=== PATIENT | female | born 1965 | race Caucasian/White ===

== ENCOUNTER 2020-10-05 08:16 | Emergency (ER) | payer OTHER, SELFPAY ==
[2020-10-05] VITALS (14 sets, daily range): BP systolic 155–193; BP diastolic 102–115; PULSE 77–98; RESP 13–20; TEMP 36.7; O2SAT 95–100
--- NOTE | ~2020-10-05 | XR_ITS ---
EXAMINATION: XR chest 2V 10/05/2020 08:41 INDICATION: Left anterior chest pain PROCEDURE: PA and lateral views of the chest COMPARISON: 05/03/2019 FINDINGS: The lungs are clear. The cardiomediastinal silhouette is within normal limits. There are no pleural effusions. There is no pneumothorax suspected. IMPRESSION: 1: NO ACUTE CARDIOPULMONARY DISEASE. Reviewed, dictated and finalized at location B.
--- NOTE | 2020-10-05 08:18 | ECG_ITS ---
Measurements Intervals [place] Rate: 96 P: -41 OK: 132 QRS: 28 QRSD: 81 T: 37 QT: 352 QTc: 447 Interpretive Statements SINUS OR ECTOPIC ATRIAL RHYTHM BORDERLINE ECG Electronically Signed On 10-05-2020 11:37:41 CDT by Morgan Youngblood D.O.
[2020-10-05 08:52] LABS: Basophils Percent Auto 0.4 % (0.2-1.2); Eosinophils Absolute Auto 0.1 K/mm3 (0-0.3); Eosinophils Percent Auto 1.1 % (0-4.4); Hemoglobin 17.7 g/dL (12.0-15.0); Immature Granulocyte Absolute 0.02 K/mm3 (0.00-0.031); Immature Granulocyte Percent A 0.2 % (0-0.5); Lymphocytes Absolute Auto 2.83 K/mm3 (0.9-3.2); Lymphocytes Percent Auto 31.7 % (18.3-44.2); Mean Corpuscular HGB Conc 33.4 g/dl (32-36); Mean Corpuscular Hemoglobin 32.1 pg (26-34); Mean Corpuscular Volume 96.2 fl (80-100); Mean Platelet Volume 11.4 fl (7.4-10.4); Monocytes Absolute Auto 0.7 K/mm3 (0.1-0.6); Neutrophils Absolute Auto 5.2 K/mm3 (1.3-6.7); Neutrophils Percent Auto 58.6 % (45.5-73.1); Platelet Count Result 216 k/mm3 (150-375); Red Blood Count 5.51 M/mm3 (4.2-5.4); Red Cell Distribution Width 13.2 % (11.5-14.5); White Blood Count 8.9 K/mm3 (4.5-10.0)
--- NOTE | 2020-10-05 08:52 | ED.CHESTPAIN ---
HPI - Chest Pain General Chief Complaint: Chest Pain Stated Complaint: Dull ache in my chest Time Seen by Provider: 10/05/20 08:27 Source: patient and RN notes reviewed Mode of arrival: ambulatory Limitations: no limitations History of Present Illness HPI narrative: Patient is 55 years old white female presents with dull aching pain across the chest for the last 24 hours, constant, worse with stress, nothing make it better. Patient sons who is 28 years old, struggling with drug addiction, relapsed on meth, patient called the police yesterday to get him some help. Patient in tears, last lorazepam intake was last night to help her to sleep. Patient denies any fever, chills, nausea, vomiting, shortness of breath, back pain or radiation of pain. Related Data Home Medications Medication Instructions Recorded Confirmed irbesartan mg 10/05/20 lorazepam 10/05/20 Allergies Allergy/AdvReac Type Severity Reaction Status Date / Time morphine Allergy Unknown Itching Verified 10/05/20 08:28 Review of Systems Review of Systems: Narrative: CONSTITUTIONAL: Denies fever, chills, or sweats. EYES: Denies visual changes, redness, or discharge. ENT: Denies rhinorrhea, congestion, sore throat, or otalgia. CARDIOVASCULAR: Denies chest pain, palpitations, or edema. RESPIRATORY: Denies cough or dyspnea. GASTROINTESTINAL: Denies abdominal pain, nausea, vomiting, or diarrhea. GENITOURINARY: Denies dysuria or hematuria. SKIN: Denies rash or itching. MUSCULOSKELETAL: Denies back pain, joint pain, or myalgia. NEUROLOGIC: Denies headache, numbness, or weakness. PSYCHIATRIC: Denies anxiety or depression. Exam Narrative: Exam Narrative: General appearance: Well-developed, well-nourished, patient in in tears, very stressed, no significant other at the bedside Skin: Normal color Head: Normocephalic, nontraumatic Eyes: Clear conjunctiva ENT: Oropharynx normal, ears normal, nose normal Neck: Supple, nontender Chest and respiratory: Airway patent, no respiratory distress, no accessory muscle use Heart: Regular rate/rhythm Abdomen: Soft, nontender, no organomegaly, quiet bowel sounds Vascular: Normal peripheral pulses, normal capillary refill. Musculoskeletal: Normal range of motion, nontender back Neurologic: Alert and oriented ?3, LVN is normal as tested, no gross motor deficit Course Course Emergency Course: Improving Vital Signs Vital signs: Vital Signs Pulse Rate 96 10/05/20 08:20 Respiratory Rate 14 10/05/20 08:20 Blood Pressure 193/115 H 10/05/20 08:20 Pulse Oximetry 100 10/05/20 08:20 Temperature 36.7 C 10/05/20 09:01 Pulse Rate 87 10/05/20 09:08 Respiratory Rate 16 10/05/20 09:08 Blood Pressure 177/106 H 10/05/20 08:46 Pulse Oximetry 95 10/05/20 09:08 MDM - Chest Pain MDM Narrative Medical decision making narrative: Patient presents with constant chest tightness over the last 24 hours, normal EKG, patient anterior because of stress. Anxiety/stress inducing chest pain is my concern. Labs, chest x-ray, IV Ativan ordered. Further plan to follow Differential Diagnosis Differential diagnosis: Likely atypical chest pain, chest pain and other (Anxiety related symptoms) Lab Data Result diagrams: 10/05/20 08:45 10/05/20 08:45 Labs: Lab Results 10/05/20 10/05/20 10/05/20 Range/Units 08:45 08:45 08:45 WBC 8.9 (4.5-10.0) K/mm3 RBC 5.51 H (4.2-5.4) M/mm3 Hgb 17.7 H (12.0-15.0) g/dL Hct 53.0 H (37.0-47.0) % MCV 96.2 (80-100) fl MCH 32.1 (26-34) pg MCHC 33.4 (32-36) g/dl RDW 13.2 (11.5-14.5) % Plt Count 216 (150-375) k/mm3 MPV 11.4 H (7.4-10.4) fl
[2020-10-05] MEDS: LORazepam INJ (*CRX) 2 MG/ML VIAL 1 MG IV PUSH (08:57)
[2020-10-05 09:01] LABS: Platelet Estimate Adequate (Adequate); Stomatocytes 1+ (NORMAL)
[2020-10-05 09:02] LABS: INR 0.8; Partial Thromboplastin Time 31.2 SECONDS (22.3-36.8); Prothrombin Time 11.9 Seconds (11.1-14.7)
[2020-10-05 09:07] LABS: Anion Gap 6 mmol/L (8-16); Blood Urea Nitrogen 10 mg/dL (7-17); Calcium 9.2 mg/dL (8.4-10.2); Carbon Dioxide 28 mmol/L (22-30); Chloride 107 mmol/L (98-107); Estimated CRCL calculation 72 ml/min; Estimated Glomerular Filt Rate > 60; Glucose 110 mg/dL (65-105); Potassium 4.6 mmol/L (3.4-5.0); Sodium 141 mmol/L (137-145)
[2020-10-05 09:19] LABS: Troponin I < 0.012 ng/mL (0.000-0.034)
== END 2020-10-05 10:12 | disposition home or self-care (01) ==
PROVIDERS: Emergency Provider Emergency Medicine; PCP Emergency Medicine
DX: R07.9 Chest pain, unspecified (principal)
CPT/HCPCS: 36415; 71046; 80048; 84484; 85025; 85610; 85730; 93005; 96374; 99284; J2060

== ENCOUNTER 2021-03-06 11:01 | Emergency (ER) | payer BC, SELFPAY ==
--- NOTE | ~2021-03-06 | CT_ITS ---
EXAMINATION: CT lumbar spine wo [facility] EXAM DATE: 03/06/2021 14:12 INDICATION: Lower extremity paresthesias, low back pain. TECHNIQUE: Spiral CT of the lumbar spine was performed without contrast. Axial, coronal and sagittal images lumbar spine were reviewed. The dose-length product (DLP) for this examination was 183.47 mG y-cm. The exposure was tailored according to patient size (auto mA exposure control), and iterative reconstruction (ASIR) was used as additional dose reduction technique. There is no prior study for comparison. FINDINGS: There are no acute fractures identified. The vertebral bodies are aligned in the AP dimensi on. No spondylolysis. Mild lumbar disc disease. There are no bony erosions identified. There are no o steoblastic or osteolytic lesions identified. There is left renal mildly hyperdense region measuring about 1 cm, most likely a hemorrhagic cyst but indeterminate. This is in the anterior cortex. Level by level evaluation: T12-L1: Disc does not extend beyond the endplate margin. Facet arthropathy: None. Neural foraminal stenosis: No stenosis. Central canal stenosis: No stenosis. L1-L2: Disc does not extend beyond the endplate margin. Facet arthropathy: None. Neural foraminal stenosis: No stenosis. Central canal stenosis: No stenosis. L2-L3: Disc does not extend beyond the endplate margin. Facet arthropathy: Mild. Neural foraminal stenosis: No stenosis. Central canal stenosis: No stenosis. L3-L4: There is a mild diffuse disc bulge. Facet arthropathy: Mild. Neural foraminal stenosis: No stenosis. Central canal stenosis: No stenosis. L4-L5: There is a mild to moderate diffuse disc bulge. Facet arthropathy: Severe right, moderate left. Neural foraminal stenosis: Mild bilateral. Central canal stenosis: Mild to moderate. L5-S1: There is a mild diffuse disc bulge. Facet arthropathy: Mild to moderate bilateral. Neural foraminal stenosis: Mild left. Central canal stenosis: No stenosis. IMPRESSION: 1. L4-5 advanced facet arthropathy. 2. Mild to moderate disc disease. 3. Left renal lesion statistically most likely hemorrhagic cyst but indeterminate on this study. Fol low-up nonemergent kidney ultrasound should be obtained. Reviewed, dictated and finalized at location B. IMPRESSION: 1. L4-5 advanced facet arthropathy. 2. Mild to moderate disc disease. 3. Left renal lesion statistically most likely hemorrhagic cyst but indetermin ate on this study. Follow-up nonemergent kidney ultrasound should be obtained.
--- NOTE | ~2021-03-06 | US_ITS ---
EXAMINATION: US arterial ankle brachial ind EXAM DATE: 03/06/2021 14:27 INDICATION: lower extremity paresthesias, pallor, discoloration. TECHNIQUE: Segmental pressures and plethysmographic and Doppler waveforms of the brachial and lower e xtremity arteries were obtained. There is no prior study for comparison. FINDINGS: Right and left brachial artery pressures of 143 mm Hg and 135 mm Hg, respectively, are concordant (no rmal difference <= 30 mmHg). RIGHT LEG: The ankle-brachial index (PALMIRA) is 1.15 (normal >= 0.9-1). The great toe-brachial index (TBI) is 0.74 (normal >= 0.65). The lower extremity ratios, segmental pressure gradients as follows; Dorsalis pedis: 1.15 (165 mmHg). Posterior tibial: 1.15 (164 mmHg). (Normal gradients <= 20-30 mmHg between adjacent levels on the same leg or the same levels on the two legs). Arterial waveforms are biphasic. LEFT LEG: The ankle-brachial index (PALMIRA) is 1.26 (normal >= 0.9-1). The great toe-brachial index (TBI) is 0.44 (normal >= 0.65). The lower extremity ratios, segmental pressure gradients as follows; Dorsalis pedis: 1.09 (156 mmHg). Posterior tibial: 1.26 (180 mmHg). (Normal gradients <= 20-30 mmHg between adjacent levels on the same leg or the same levels on the two legs). Arterial waveforms are biphasic. IMPRESSION: 1. Right ankle-brachial index 1.15, normal. 2. Left ankle-brachial index 1.26, normal. 3. Segmental pressures as above. Reviewed, dictated and finalized at location B.
[2021-03-06 11:06] VITALS: BP 140/89; PULSE 85; RESP 15; TEMP 36.6; O2SAT 98
--- NOTE | 2021-03-06 15:26 | ED.GENADULT ---
HPI - General Adult General Chief complaint: Unspecified Stated complaint: BILATERAL FEET PAIN AND DISCOLORATION Time Seen by Provider: 03/06/21 13:46 Source: patient Mode of arrival: ambulatory Limitations: no limitations History of Present Illness HPI narrative: This is a 55-year-old female that presents to the emergency department for ongoing symptoms over the last month. Reports she intermittently feels tingling in her legs. Also reports sometimes her feet appear pale and feel cold. Does report some history of low back problems. Denies any recent injury or trauma. Denies fever, erythema, edema, or numbness. Related Data Home Medications Medication Instructions Recorded Confirmed irbesartan mg 10/05/20 lorazepam 10/05/20 buspirone mg 03/06/21 03/06/21 Allergies Allergy/AdvReac Type Severity Reaction Status Date / Time morphine Allergy Unknown Itching Verified 03/06/21 12:33 Review of Systems Review of Systems: CONSTITUTIONAL: Denies fever SKIN: Denies rash MUSCULOSKELETAL: Reports back pain, joint pain, and myalgia. NEUROLOGIC: Denies numbness, or weakness. All systems reviewed & are unremarkable except as noted in HPI and below PMFSH Past Medical History Medical History (Updated 03/06/21 @ 15:31 by Harriett Minor PA-C) History of hypertension Surgical History Surgical History (Updated 03/06/21 @ 15:31 by Harriett Minor PA-C) History of hysterectomy Exam Narrative: GENERAL: Well-appearing, well-nourished, and in no acute distress. HEAD: Normocephalic, atraumatic. EYES: EOMI. CHEST: Clear to auscultation. No respiratory distress. No wheezes rales or rhonchi HEART: Regular rate and rhythm. No murmur heard. Normal peripheral pulses. EXTREMITIES: Normal range of motion. No edema, erythema. Normal DP pulses. Normal sensation SKIN: Warm, dry, no rash. NEURO: No focal deficits. Alert and oriented x3. PSYCH: Normal mood and affect Course Consultations Consultation #1: Spoke with Dr. Anatoliy Morgan about patient and work-up who will follow-up in clinic. Date: 03/06/21 Time: 15:30 Vital Signs Vital signs: Vital Signs Temperature 97.8 F 03/06/21 11:06 Pulse Rate 85 03/06/21 11:06 Respiratory Rate 15 03/06/21 11:06 Blood Pressure 140/89 03/06/21 11:06 Pulse Oximetry 98 03/06/21 11:06 Temperature 97.8 F 03/06/21 11:06 Pulse Rate 85 03/06/21 11:06 Respiratory Rate 15 03/06/21 11:06 Blood Pressure 140/89 03/06/21 11:06 Pulse Oximetry 98 03/06/21 11:06 Medical Decision Making MDM Narrative Medical decision making narrative: Patient says the emergency department for intermittent paresthesias of the lower extremities over the last month. She is afebrile and nontoxic-appearing. She is neurovascularly intact. CT scan of the lumbar spine shows mild to moderate disc disease. Shows advanced L4/5 facet arthropathy. Shows a left renal lesion that is most likely a hemorrhagic cyst that will need follow-up with a nonemergent kidney ultrasound. ABIs are normal. Patient was updated on case findings. Spoke with Dr. Anatoliy Morgan about patient and work-up who will follow-up in clinic. Patient is stable and felt appropriate for further outpatient evaluation. She was given warnings to return to the ER Vital Signs Vital Signs: Vital Signs Temperature 97.8 F 03/06/21 11:06 Pulse Rate 85 03/06/21 11:06 Respiratory Rate 15 03/06/21 11:06 Blood Pressure 140/89 03/06/21 11:06 Pulse Oximetry 98 03/06/21 11:06 Temperature 97.8 F 03/06/21 11:06 Pulse Rate 85 03/06/21 11:06 Respiratory Rate 15 03/06/21 11:06 Blood Pressure 140/89 03/06/21 11:06 Pulse Oximetry 98 03/06/21 11:06 Imaging Data Radiologist's impression: ITS Impressions Lumbar Spine CT 03/06/21 14:16 IMPRESSION: 1. L4-5 advanced facet arthropathy. 2. Mild to moderate disc disease. 3. Left renal lesion statistically most likely hemorrhagic cyst but indeterminate
[2021-03-06 15:35] VITALS: BP 132/84; PULSE 80; RESP 16; O2SAT 98
== END 2021-03-06 15:35 | disposition home or self-care (01) ==
PROVIDERS: Emergency Provider Emergency Medicine; PCP Emergency Medicine
DX: R20.2 Paresthesia of skin (principal); N28.89 Other specified disorders of kidney and ureter; I10 Essential (primary) hypertension; M51.36 Other intervertebral disc degeneration, lumbar region
CPT/HCPCS: 72131; 93922; 99284

== ENCOUNTER 2022-06-12 10:35 | Emergency (ER) | payer SELFPAY ==
[2022-06-12 10:38] VITALS: BP 178/89; PULSE 80; RESP 16; TEMP 36.6; O2SAT 100
--- NOTE | 2022-06-12 13:47 | PC.NURSE ---
patient left waiting area stating wait was too long
== END 2022-06-12 14:06 | disposition left against medical advice (07) ==
DX: M54.6 Pain in thoracic spine (principal)
CPT/HCPCS: 99199

== ENCOUNTER 2023-11-07 11:45 | Emergency (ER) | payer OTHER, SELFPAY ==
[2023-11-07] VITALS (7 sets, daily range): BP systolic 154–185; BP diastolic 97–109; PULSE 79–93; RESP 14–18; TEMP 36.2; O2SAT 98–100
--- NOTE | ~2023-11-07 | CT_ITS ---
Non-contrast Head CT History: Headache Technique: Axial non-contrast imaging of the brain was performed. Dose reduction technique was used on this scan by utilizing automated exposure control and iterative reconstruction technique. The dose -length product (DLP) was 605.33 mGy-cm. Findings: There is no evidence of intracranial hemorrhage, mass lesion, or acute infarct. Brain par enchyma appears normal. The ventricles and subarachnoid spaces are normal in size. The calvarium ap pears normal. The visualized paranasal sinuses and mastoid air cells are clear. Impression: No significant abnormality seen. Reviewed, dictated and finalized at location . Impression: No significant abnormality seen.
--- NOTE | ~2023-11-07 | XR_ITS ---
EXAMINATION: XR chest 2V DATE: 11/07/2023 13:11 INDICATION: Dizziness. Hypertension. TECHNIQUE: PA and lateral views of the chest were obtained. COMPARISON: Chest radiograph dated 10/05/2020 FINDINGS: The lungs are clear with no focal airspace opacities, pulmonary edema, pleural effusion or pneumothor ax. The cardiomediastinal silhouette is normal. Visualized bones and soft tissues are unremarkable. IMPRESSION: 1. No acute cardiopulmonary disease. Reviewed, dictated and finalized at location A.
--- NOTE | 2023-11-07 12:19 | ECG_ITS ---
SEE SCANNED COPY FOR CONFIRMED REPORT MTDD
--- NOTE | 2023-11-07 12:21 | ED.GENADULT ---
HPI - General Adult General Chief complaint: Recheck/Abnormal Lab/Rx Stated complaint: HTN-sent from Time Seen by Provider: 11/07/23 12:36 Source: patient, RN notes reviewed and old records reviewed Mode of arrival: ambulatory Limitations: no limitations History of Present Illness HPI narrative: This is a 58 year old female who presents for evaluation of hypertension and near syncope. Patient reports she has been dealing with alot of stress at work recently. Today she was walking into room at work to make coffee when she reports a wave of black came over her vision and she felt like she was going to pass out. She did not pass out and she was able to walk back to her desk. She states she went to for assessment and she was found to have elevated blood pressure and referred to ER. She states she developed headache after the event. She denies associated chest pain, sob, nausea, vomiting, focal weakness, numbnesss or tingling. She tearfully states she is under alot of stress at work and thinks this is cause of her symptoms. She reports 2 months ago her blood pressure was 140-150s. She has appointment with PCP on Saturday. She denies history of stroke, TIA or heart disease. Took irbesartan this morning and she takes ativan at night. Related Data Home Medications Medication Instructions Recorded Confirmed irbesartan 150 mg tablet mg 10/05/20 lorazepam 1 mg tablet 10/05/20 buspirone 15 mg tablet mg 03/06/21 03/06/21 Allergies Allergy/AdvReac Type Severity Reaction Status Date / Time morphine Allergy Unknown Itching Verified 11/07/23 11:45 Review of Systems Constitutional: Constitutional: Denies weakness Eyes: Eyes: Reports change in vision (blurry vision) ENT: Reports dizziness Cardiovascular: Cardiovascular: Denies syncope, Denies rapid heart rate, Denies irregular heart rhythm, Denies leg edema and Denies dyspnea Respiratory: Respiratory: Denies chest congestion, Denies hemoptysis, Denies excessive phlegm production and Denies dyspnea Gastrointestinal: Gastrointestinal: Denies abdominal pain, Denies hematochezia, Denies diarrhea and Denies vomiting Genitourinary: Genitourinary: Denies hematuria and Denies dysuria Musculoskeletal: Musculoskeletal: Denies joint swelling, Denies loss of height and Denies muscle weakness Neurologic: Reports dizziness, Denies syncope, Reports headache(s), Denies focal weakness and Denies weakness PMFSH Past Medical History Medical History History of hypertension Surgical History Surgical History History of hysterectomy Family History Family History Mother Family history of malignant neoplasm Social History Social History Smoking status: Heavy tobacco smoker Alcohol intake: current Exam Const: General: alert Nutritional Appearance: well nourished Orientation/consciousness: patient oriented x3 HENMT: Head: normal to inspection Face and sinus: normal facial exam Mouth: Yes Normal oral and palatal mucosa present, Yes lip normal and Yes moist mucous membranes Throat: posterior oropharynx normal and uvula midline Eyes: Conjunctivae: conjunctivae normal Pupils: Equal, round and reactive pupils present EOM: EOMs intact bilaterally Resp: Effort & Inspection: normal respiratory effort Auscultation: clear to auscultation bilaterally Cardio: Rate: regular rate Rhythm: regular rhythm Heart sounds: no murmurs GI: GI Palp: Yes Soft to palpation, No Tenderness to palpation present (GI), No Guarding due to palpation present (GI) and No Rigid due to palpation Auscultation: normal bowel sounds Skin: General skin exam: normal color Rashes: no rashes Neuro: General: patient oriented x3, moves all extremities, no focal motor deficits and CN's II-XI in
--- NOTE | 2023-11-07 12:29 | PC.NURSE ---
Pt reports being under a lot of stress at work. Also forgetting to take blood pressure medications yesterday but did take them today. Denies any vision difficulty at this time. c/o dizziness.
[2023-11-07 12:31] LABS: Basophils Absolute Auto 0.1 K/mm3 (0.0-0.1); Basophils Percent Auto 0.6 % (0.2-1.2); Eosinophils Absolute Auto 0.1 K/mm3 (0-0.3); Eosinophils Percent Auto 1.7 % (0-4.4); Hematocrit 47.7 % (37.0-47.0); Hemoglobin 16.1 g/dL (12.0-15.0); Immature Granulocyte Absolute 0.02 K/mm3 (0.00-0.031); Immature Granulocyte Percent A 0.2 % (0-0.5); Lymphocytes Absolute Auto 3.85 K/mm3 (0.9-3.2); Lymphocytes Percent Auto 46.6 % (18.3-44.2); Mean Corpuscular HGB Conc 33.8 g/dl (32-36); Mean Corpuscular Hemoglobin 34.5 pg (26-34); Mean Corpuscular Volume 102.1 fl (80-100); Mean Platelet Volume 11.3 fl (7.4-10.4); Monocytes Absolute Auto 0.4 K/mm3 (0.1-0.6); Neutrophils Absolute Auto 3.8 K/mm3 (1.3-6.7); Neutrophils Percent Auto 45.9 % (45.5-73.1); Platelet Count Result 190 k/mm3 (150-375); Red Blood Count 4.67 M/mm3 (4.2-5.4); Red Cell Distribution Width 12.6 % (11.5-14.5); White Blood Count 8.3 K/mm3 (4.5-10.0)
[2023-11-07 12:43] LABS: Alanine Aminotransferase 13 U/L (6-35); Albumin Level 4.4 g/dL (3.5-5.1); Alkaline Phosphatase 101 U/L (38-126); Anion Gap 7 mmol/L (4-12); Aspartate Amino Transferase 22 U/L (14-36); Bilirubin,Total 0.7 mg/dL (0.2-1.3); Blood Urea Nitrogen 16 mg/dL (7-17); Calcium 9.4 mg/dL (8.4-10.2); Carbon Dioxide 25 mmol/L (22-30); Chloride 106 mmol/L (98-107); Estimated CRCL calculation 62 ml/min; Estimated Glomerular Filt Rate > 60; Glucose 98 mg/dL (65-110); Potassium 3.8 mmol/L (3.4-5.0); Sodium 138 mmol/L (137-145)
[2023-11-07 12:53] LABS: Atypical Lymphocytes Present; Platelet Estimate Adequate (Adequate); Schistocytes None Seen
[2023-11-07 13:06] LABS: INR 0.9; Prothrombin Time 12.2 Seconds (11.1-14.7)
[2023-11-07 13:07] LABS: Partial Thromboplastin Time 29.7 Seconds (22.3-36.8)
[2023-11-07 13:13] LABS: Troponin I < 0.012 ng/mL (0.000-0.034)
[2023-11-07] MEDS: LORazepam (*CRX) 0.5 MG TABLET PO (13:26)
[2023-11-07] MEDS: hydrALAZINE HCL 20 MG/ML VIAL 10 MG IV PUSH (14:24)
[2023-11-07] MEDS: amLODIPine BESYLATE 5 MG TABLET PO (15:13)
== END 2023-11-07 15:35 | disposition home or self-care (01) ==
PROVIDERS: Emergency Medicine; Emergency Provider General Practice; PCP Family Medicine
DX: I16.0 Hypertensive urgency (principal)
CPT/HCPCS: 36415; 70450; 71046; 80053; 83735; 84484; 85025; 85610; 85730; 93005; 96374; 99284; A9270; J0360